=== PATIENT | male | born 1985 | race Two or more races ===

== ENCOUNTER → 2017-01-13 | Outpatient (REF) | payer OTHER | LOC: M LAB REF 06:31 | PROVIDERS: ATTEND Physician Assistant | DX: J20.9 Acute bronchitis, unspecified (principal) ==

== ENCOUNTER → 2017-04-13 | Outpatient (CLI) | payer OTHER ==
[2017-04-13 13:25] LABS: ANION GAP 5 MEQ/L (8-16); BLOOD UREA NITROGEN 15 MG/DL (7-18); CALCIUM LEVEL 9.2 MG/DL (8.5-10.1); CARBON DIOXIDE LEVEL 30 MEQ/L (21-32); CHLORIDE LEVEL 108 MEQ/L (98-107); CREATININE FOR GFR 0.97 MG/DL (0.70-1.30); GLOMERULAR FILTRATION RATE > 60.0 (>60); GLUCOSE, FASTING 93 MG/DL (70-105); PHOSPHORUS LEVEL 2.4 MG/DL (2.5-4.9); POTASSIUM SERUM 4.7 MEQ/L (3.5-5.1); SODIUM LEVEL 143 MEQ/L (136-145); URIC ACID 8.8 MG/DL (3.5-7.2)
== END ==
LOC: M WUC 08:46
PROVIDERS: ATTEND Physician Assistant
DX: M10.00 Idiopathic gout, unspecified site (principal)

== ENCOUNTER → 2017-05-28 | Outpatient (CLI) | payer OTHER ==
--- NOTE | 2017-05-28 11:47 | REP ---
LEFT FOOT SERIES: Four views. HISTORY: Pain in the left foot. FINDINGS: Four views of the left foot show overall normal mineralization. No heel spurring is seen. There is mild hypertrophy and soft tissue swelling at the IP joint of the great toe. A subcortical cyst is seen along the medial aspect of the proximal phalanx of the great toe. This measures 7 mm in greatest diameter. No other bony abnormality. IMPRESSION: Soft-tissue swelling at the IP joint of the great toe and subcortical cyst in the distal aspect of the proximal phalanx of the great toe. No other bony abnormality. Signed by Berto Mckeon MD 05/28/2017 11:53 A
== END ==
LOC: M SMT 10:21
PROVIDERS: ATTEND Family Medicine
DX: M79.672 Pain in left foot (principal)

== ENCOUNTER 2017-10-08 16:43 | Emergency (ER) | payer OTHER | END 2017-10-08 20:07 | disposition home or self-care (01) | LOC: M ED 16:43 | DX: S46.811A Strain of other muscles, fascia and tendons at shoulder and upper arm level, right arm, initial encounter (principal); V43.52XA Car driver injured in collision with other type car in traffic accident, initial encounter; Y92.410 Unspecified street and highway as the place of occurrence of the external cause; Y93.9 Activity, unspecified; M51.9 Unspecified thoracic, thoracolumbar and lumbosacral intervertebral disc disorder; M10.9 Gout, unspecified; M50.321 Other cervical disc degeneration at C4-C5 level; M50.322 Other cervical disc degeneration at C5-C6 level; Z79.899 Other long term (current) drug therapy; Z88.2 Allergy status to sulfonamides; Z88.1 Allergy status to other antibiotic agents | CPT/HCPCS: 73030 ==

== ENCOUNTER → 2018-02-16 | Outpatient (CLI) | payer OTHER | LOC: M OUTALCOH 10:37 | DX: Z13.9 Encounter for screening, unspecified (principal); F10.10 Alcohol abuse, uncomplicated ==

== ENCOUNTER → 2018-03-15 | Outpatient (CLI) | payer OTHER ==
[2018-03-15 15:46] LABS: URIC ACID 7.2 MG/DL (3.5-7.2)
== END ==
LOC: M WUC 12:32
DX: M10.00 Idiopathic gout, unspecified site (principal)

== ENCOUNTER 2018-04-22 22:25 | Emergency (ER) | payer OTHER | END 2018-04-23 00:07 | disposition home or self-care (01) | LOC: M ED 22:25 | DX: S70.12XA Contusion of left thigh, initial encounter (principal); X58.XXXA Exposure to other specified factors, initial encounter; Y92.89 Other specified places as the place of occurrence of the external cause; M10.9 Gout, unspecified; Z88.1 Allergy status to other antibiotic agents; Z88.2 Allergy status to sulfonamides; Z79.899 Other long term (current) drug therapy | CPT/HCPCS: 76882 ==

== ENCOUNTER → 2018-07-27 | Outpatient (CLI) | payer OTHER ==
[2018-07-29 11:53] LABS: HEPATITIS C VIRUS ABY INDEX < 0.0 INDEX (<0.8)
[2018-07-29 11:53] LABS: HEPATITIS B CORE ANTIBODY IGM NEGATIVE (NEGATIVE); HEPATITIS B SURFACE ANTIBODY POSITIVE (POSITIVE); HEPATITIS B SURFACE ANTIGEN NEGATIVE (NEGATIVE); HIV 1&2 SCREEN CENTAUR NEGATIVE (NEGATIVE)
== END ==
LOC: M SMT 13:50
DX: Z02.5 Encounter for examination for participation in sport (principal)
CPT/HCPCS: 86706

== ENCOUNTER 2019-02-20 12:27 | Emergency (ER) | payer OTHER ==
[~2019-02-20] VITALS: Ht 177.8 cm; Wt 93.2 kg
[~2019-02-20 12:27] MED LIST: NAPR-885 PO; ROBA500T PO; ZYLO300T6 PO
[2019-02-20] MEDS ORDERED: KETOROLAC 60 MG/2 ML VIAL (J1885) IM ONE (15:30)
[2019-02-20] MEDS ORDERED: dexameTHASONE 20 MG/5 ML VIAL (J1100) IM ONE (15:30)
[2019-02-20] MEDS ORDERED: MEDR4PAK PO (15:57)
[2019-02-20] MEDS ORDERED: VALI5TAB PO (15:57)
[2019-02-20 16:04] VITALS: BP 128/72
== END 2019-02-20 16:08 | disposition home or self-care (01) ==
LOC: M ED 12:27
DX: S33.9XXA Sprain of unspecified parts of lumbar spine and pelvis, initial encounter (principal); X58.XXXA Exposure to other specified factors, initial encounter; Y92.39 Other specified sports and athletic area as the place of occurrence of the external cause; Y93.89 Activity, other specified; Y99.9 Unspecified external cause status; M10.9 Gout, unspecified; Z87.891 Personal history of nicotine dependence; Z79.899 Other long term (current) drug therapy; Z88.2 Allergy status to sulfonamides; Z88.1 Allergy status to other antibiotic agents
CPT/HCPCS: 96372; 99283; J1100; J1885